=== PATIENT | female | born 2005 | race Caucasian/White ===

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

== ENCOUNTER 2024-11-27 12:09 | Outpatient (CLI) | payer BC | END 2024-11-27 12:10 | disposition home or self-care (01) | LOC: CSHRAD 12:09 | PROVIDERS: ATTEND Internal Medicine Rheumatology | DX: R76.12 Nonspecific reaction to cell mediated immunity measurement of gamma interferon antigen response without active tuberculosis (principal) | CPT/HCPCS: 71046 ==